=== PATIENT | male | born 1980 | race Caucasian/White ===

== ENCOUNTER 2021-11-11 09:01 | Emergency (ER) | payer BC, MEDICAID, SELFPAY ==
[2021-11-11 09:02] VITALS: BP 135/87; PULSE 84; RESP 14; TEMP 36.3; O2SAT 98; BMI 29.7
--- NOTE | 2021-11-11 09:19 | RAD_ITS ---
STUDY: X-RAY CHEST REASON FOR EXAM: Male, 41 years old. Chest pain. Palpitations. TECHNIQUE: Single AP portable view of the chest. COMPARISON: None. FINDINGS: EKG electrodes are seen. The lungs are clear and expanded. Scattered calcified granulomas. There is no demonstrated pleural abnormality. Normal size heart. Normal mediastinum and elysia. Normal visualized pulmonary arteries. Normal visualized aortic arch and descending thoracic aorta. Normal visualized thoracic spine. Normal visualized ribs, clavicles, and shoulders. There is no demonstrated abnormality of the visualized soft tissue structures of the upper abdomen. RAD/Chest 1 View (Portable) IMPRESSION: No acute abnormality is seen. Electronically Signed: Steven Knight MD at 9:52 EST , Service support ,
--- NOTE | 2021-11-11 09:19 | EKG12_ITS ---
Test Reason : PALPITATIONS Blood Pressure : / mmHG Vent. Rate : 092 BPM Atrial Rate : 092 BPM P-R Int : 180 ms QRS Dur : 086 ms QT Int : 362 ms P-R-T Axes : 043 029 043 degrees QTc Int : 447 ms Normal sinus rhythm Normal ECG Confirmed by CLEVE ODONNELL, EDUARDO ([id number]), video tape editor EMILY DANIELS ([id number]) on 11/15/2021 10:18:41 AM Referred By: MARIOLA Confirmed By:EDUARDO POON MD
--- NOTE | 2021-11-11 09:20 | ED.VIS.CHEST ---
HPI History of Present Illness Chief Complaint: Palpitations Detail of Chief Complaint: Racing heart and chest pain Informant: patient Narrative Narrative: Patient presents to the emergency department with 2-day history of intermittent racing heart. He has checked his pulse and has been up to 120 at times. Patient states that he had symptoms earlier in the week and 4 days ago was seen at [facility] where he had an EKG that was unremarkable but states that his symptoms had resolved at that point after waiting 4 hours in the emergency department there. Patient today describes a burning in the center of his chest. Patient denies recent travel or surgery. No history of PE or DVT. No heart history. Patient has had his COVID-vaccine and did have COVID 1 year ago. He denies cough. Prior Similar Symptoms: Yes [facility] Medical History (Updated 11/11/21 @ 12:[address] Javed Uriostegui, ) Anxiety GERD (gastroesophageal reflux disease) Hyperlipidemia Home Medications atorvastatin 10 mg PO DAILY 11/11/21 [History Last Taken Unknown] oxybutynin chloride 10 mg PO DAILY 11/11/21 [History Last Taken Unknown] Allergy/AdvReac Type Severity Reaction Status Date / Time pseudoephedrine Allergy Other Verified 11/11/21 09:06 [From [facility]] Social History Smoking Status: Never smoker ROS ROS ED Review of Systems ROS Unobtainable: other Constitutional Constitutional ED: Reports lethargy; Denies chills, fever(s), sweats or weight loss Eyes Eyes: Denies blurry vision, change in vision or diplopia ENT ENT ED: Denies rhinorrhea or sore throat Cardiovascular Cardiovascular: Reports chest pain and racing heartbeat; Denies orthopnea Respiratory/Chest Respiratory/Chest: Reports dyspnea and dyspnea on exertion; Denies cough, orthopnea or sputum Gastrointestinal Gastrointestinal: Denies abdominal pain, diarrhea, nausea or vomiting Genitourinary Genitourinary ED: Denies dysuria, hematuria or urinary frequency Musculoskeletal Musculoskeletal: Denies arthralgias, back pain, myalgias or neck pain Integumentary Denies abscess, Abrasions or rash Neurologic Neurologic: Denies headache(s) or weakness Psychiatric Psychiatric: Denies anxiety, depression or suicidal thoughts Endocrine Endocrinology: Denies polydipsia, polyphagia or polyuria Hematologic/Lymphatic Hematologic/Lymphatic: Denies easy bleeding, easy bruising or lymphadenopathy Allergic/Immunologic Allergic/Immunologic ED: Denies mouth swelling, tongue swelling or urticaria EXAM Physical Exam Const Vital Signs: 11/11/21 09:02 11/11/21 10:03 Temperature 97.3 F L Temperature Source Temporal Pulse Rate 84 Respiratory Rate 14 Respiratory Effort Normal Non-Labored Respiratory Pattern Normal Blood Pressure 135/87 H Blood Pressure Mean 103 Pulse Ox 98 96 Oxygen Delivery Method Room Air Room Air Positive well nourished and well developed General Appearance ED: well developed and NAD HEENT Reports TM's clear and moist mucous membranes normocephalic and atraumatic; Negative for trauma or tenderness Tympanic Membrane ED: Yes TM's clear Eyes PERRL and EOMs intact bilaterally General Eye ED: Negative for pale conjunctiva or scleral icterus Neck no lymphadenopathy, supple and no JVD General: Negative for tenderness Chest Wall inspection of chest normal and palpation of chest normal Chest: Negative for tenderness Resp normal respiratory effort and clear to auscultation bilaterally Effort and Inspection: Negative for respiratory distress or pain with movement Auscultation: Negative for rhonchi, wheezes or diminished lung sounds Cardio regular rate, regular rhythm, S1 normal heart sound, S2 normal heart sound and no murmurs Peripheral Pulses: pulses 2+ throughout GI normal to inspection, nondistended, normoactive bowel sounds, soft to palpation, non-tender, non-distended and no masses Back/Spine no CVA tenderness and no thoracic nor lumbar tenderness Extremity normal to inspection General Extremety ED: Negative for edema General Extremity: Negative for edema Neuro oriented x3, CN's II-XII intact bilaterally, no sensory deficits noted and gait normal Sensorium / Orientation: awake, alert, oriented to person, oriented to place and oriented to time Motor Exam: strength 5/5 throughout and strength abnormal Psych mental status grossly normal Skin no rashes or lesions noted and no wounds Heart Score History: Slightly/Non-Suspicious ECG: Normal Age: </= 45 years Risk Factors: 1 or 2 Risk Factors Troponin: </= Normal Limit Score: 1 MDM MDM MDM Narrative Medical decision making narrative: IV line established on arrival. Patient placed on a cardiac rehabilitation specialist. He received a GI cocktail which really did not help his discomfort in his chest. Patient had a D-dimer that was normal and a troponin that was normal with ongoing pain since yesterday that is been continuous. His heart score is a 1. He does have family history of heart disease and history of cholesterol. Patient I feel is low risk for acute coronary syndrome. He has an appoint with his primary care physician tomorrow. I offered to place a Holter monitor on the patient for 2 days however he states that he is good to follow-up with his PCP tomorrow and the plan was to do it at that time. Patient would like to wait till tomorrow. Lab Data Attestation: I reviewed the patient's lab results. Labs: Laboratory Results - last 24 hr 11/11/21 11/11/21 11/11/21 09:20 09:20 09:20 WBC 10.6 RBC 5.28 Hgb 15.6 Hct 45.6 MCV 86.4 MCH 29.5 MCHC 34.2 RDW Std Deviation 41.1 RDW Coeff of Jose Roberto 13.1 Plt Count 228 MPV 10.3 Immature Gran % (Auto) 0.500 Neut % (Auto) 69.3 Lymph % (Auto) 21.8 [place] % (Auto) 6.4 Eos % (Auto) 1.5 Baso % (Auto) 0.5 Absolute Neuts (auto) 7.4 Absolute Lymphs (auto) 2.31 Nucleated RBC % 0 D-Dimer Quant (PE/DVT) 0.34 Sodium 139 Potassium 3.5 Chloride 107 Carbon Dioxide 25.0 Anion Gap 7 BUN 17 Creatinine 0.74 Estim Creat Clear Calc 132.90 Est GFR (MDRD) Af Amer 147 Est GFR (MDRD) Non-Af 122 BUN/Creatinine Ratio 22.9 H Glucose 127 H Calcium 9.3 Troponin I High Sens 11 TSH 0.80 Radiography Diagnostic Testing: Clinical Impression(s) from Imaging Studies Chest X-Ray 11/11/21 09:19 IMPRESSION: No acute abnormality is seen. Electronically Signed: Steven Knight MD at 9:52 EST , Service support , 1 view chest x-ray obtained interpreted by myself as no acute disease process EKG Initial EKG: Attestation: I personally reviewed and interpreted this EKG as follows: Comments: Sinus rhythm with a ventricular rate of 92 bpm with no acute ST segment changes Discharge Plan Triage Chief Complaint: Palpitations ED Provider: Javed Uriostegui Dx/Rx/DC Orders Clinical Impression: Chest pain, Tachycardia Instructions: ED Chest Pain, Uncertain Cause, ED Palpitations Prescriptions: No Action atorvastatin 10 mg tablet 10 mg PO DAILY RF: 0 oxybutynin chloride 10 mg tablet extended release 24hr 10 mg PO DAILY RF: 0 Primary Care Provider: Pramod Burton NP Referrals: Pramod Burton [employer], [employer] [Primary Care Provider] - 1 Day Disposition Disposition: Home, Self Care
[2021-11-11 09:31] LABS: Absolute Lymphocyte Count 2.31 X10^3/uL (0.83-4.51); Absolute Neutrophil Count 7.4 X10^3/uL (2.0-7.7); Basophil# 0.05 X10^3/uL; Basophil% 0.5 % (0-1); Eosinophil# 0.16 X10^3/uL; Eosinophils% 1.5 % (0-5); Hematocrit 45.6 % (40-54); Hemoglobin 15.6 g/dL (13.0-16.5); Lymphocyte # 2.31 X10^3/ul (0.83-4.51); Lymphocyte % 21.8 % (19-41); Mean Corp Hgb Conc 34.2 g/dL (32-36); Mean Corpuscular Hgb 29.5 pg (27.0-32.0); Mean Corpuscular Volume 86.4 fL (80-94); Mean Platelet Vol. 10.3 fl (6.2-12.0); Monocyte# 0.68 X10^3/uL; Monocyte% 6.4 % (0-10); NRBC Flagged by Analyzer 0 % (0-5); Neutrophil # 7.35 X10^3/uL (2.7-7.7); Neutrophil % 69.3 % (47-70); Platelet Count 228 K/mm3 (150-450); RBC Distribution Width CV 13.1 % (11.6-14.6); RBC Distribution Width SD 41.1 fl (35.1-43.9); Red Blood Count 5.28 M/mm3 (4.6-6.2); White Blood Count 10.6 K/mm3 (4.4-11.0)
[2021-11-11] MEDS: 0.9% Normal Saline 1,000 ML 150 ML IV (09:37)
[2021-11-11] MEDS: Mag Hydrox/Al Hydrox/Simeth 30 ML UDC PO (09:39)
[2021-11-11 09:42] LABS: D-Dimer Quantitative (DVT/PE) 0.34 FEU/ug/m (0.27-0.49)
[2021-11-11 09:56] LABS: Anion Gap 7 (5-15); BUN 17 mg/dL (7-18); BUN/Creat Ratio 22.9 RATIO (10-20); Calcium,Total 9.3 mg/dL (8.5-10.1); Chloride 107 mmol/L (98-107); Creatinine, Serum 0.74 mg/dL (0.70-1.30); EST Glomerular Filtration Rate 122 mL/min (>60); Est Glom Filt Rate - Afr Amer 147 mL/min (>60); Glucose 127 mg/dL (74-106); Potassium 3.5 mmol/L (3.5-5.1); Sodium Level 139 mmol/L (136-145); Troponin-I HS 11 pg/mL (3.0-78.0)
[2021-11-11 10:03] VITALS: O2SAT 96
[2021-11-11 13:06] VITALS: PULSE 88; RESP 16; O2SAT 98
== END 2021-11-11 13:09 | disposition home or self-care (01) ==
PROVIDERS: Emergency Provider Emergency Medicine; PCP Nurse Practitioner Primary Care; Visit Provider Emergency Medicine
DX: R07.9 Chest pain, unspecified (principal); R00.0 Tachycardia, unspecified; R00.2 Palpitations; E78.5 Hyperlipidemia, unspecified; Z86.16 Personal history of COVID-19; Z79.899 Other long term (current) drug therapy
CPT/HCPCS: 71045; 80048; 84443; 84484; 85025; 85379; 93005; 99284; J7030; A4216

== ENCOUNTER 2023-04-23 16:35 | Emergency (ER) | payer BC, MEDICAID, SELFPAY ==
[2023-04-23 16:35] VITALS: BP 123/83; PULSE 92; RESP 18; TEMP 36.1; O2SAT 100; BMI 29.1
--- NOTE | 2023-04-23 17:06 | EDS_ITS ---
HPI History of Present Illness Chief Complaint: Rash Informant: patient Onset/Context/Timing Onset: Days (6 days) Context: Gradual Onset Narrative Narrative: Patient presents with poison barbra to the left side of his body. He states he got poison barbra last Monday when he was golfing. Has been using topical ointment. Today he noted swelling in his left forearm with some puslike drainage. He was concerned for infection and presents to the ER. He did take Benadryl prior to arrival. Wounds were recently cleansed and cortisone cream was placed over the forearm. [facility] Medical History Anxiety GERD (gastroesophageal reflux disease) Hyperlipidemia Home Medications atorvastatin 10 mg tablet 10 mg PO DAILY 11/11/21 [History Last Taken Unknown] oxybutynin chloride 10 mg tablet,extended release 24 hr 10 mg PO DAILY 11/11/21 [History Last Taken Unknown] cephalexin 500 mg capsule 500 mg PO Q6 #40 CAPSULES 04/23/23 [Rx Last Taken Unknown] prednisone 20 mg tablet 40 mg PO DAILY #8 tabs 04/23/23 [Rx Last Taken Unknown] Allergy/AdvReac Type Severity Reaction Status Date / Time pseudoephedrine Allergy Other Verified 04/23/23 16:37 [From [facility]] Social History Smoking Status: Never smoker ROS ROS ED Constitutional Constitutional ED: Denies chills or fever(s) Eyes Eyes: Denies discharge from eye(s) ENT ENT ED: Denies discharge from eye(s) or sore throat Cardiovascular Cardiovascular: Denies chest pain Respiratory/Chest Respiratory/Chest: Denies cough or dyspnea Gastrointestinal Gastrointestinal: Denies abdominal pain, nausea or vomiting Musculoskeletal Musculoskeletal: Denies back pain Integumentary Reports rash; Denies Abrasions Neurologic Neurologic: Denies headache(s) or weakness Psychiatric Psychiatric: Denies anxiety or depression Allergic/Immunologic Allergic/Immunologic ED: Denies lip swelling or urticaria EXAM Physical Exam Const Vital Signs: 04/23/23 16:35 Temperature 97 F L Temperature Source Temporal Pulse Rate 92 Respiratory Rate 18 Blood Pressure 123/83 H Blood Pressure Mean 96 Pulse Ox 100 Oxygen Delivery Method Room Air Positive well nourished and well developed General Appearance ED: well developed HEENT Reports normocephalic and head/scalp atraumatic Eyes PERRL and EOMs intact bilaterally Neck supple Chest Wall palpation of chest normal Resp normal respiratory effort and clear to auscultation bilaterally Cardio regular rate and regular rhythm Neuro oriented x3 and no sensory deficits noted Sensorium / Orientation: alert Motor Exam: strength 5/5 throughout Psych mental status grossly normal Skin Skin Narrative: Erythematous rash noted to the lateral portion of the left upper arm, left volar forearm, left lateral proximal lower leg. Symptoms are consistent with contact dermatitis from poison barbra. No sign of obvious secondary infection at this time. MDM MDM MDM Narrative Medical decision making narrative: Patient be treated with oral prednisone given the multiple areas of his skin involved with his reaction. Given that he has noted drainage in the left forearm I will cover him with Keflex. It is possible that there is serosanguineous drainage but to help prevent any secondary infection he will be covered with antibiotic. Return instructions provided. Discharge Plan Triage Chief Complaint: Rash ED Provider: Nora Fragoso Dx/Rx/DC Orders Clinical Impression: Poison barbra dermatitis Instructions: ED Poison Barbra Rash Prescriptions: New prednisone 20 mg tablet 40 mg PO DAILY Qty: 8 0RF cephalexin 500 mg capsule 500 mg PO Q6 Qty: 40 0RF No Action atorvastatin 10 mg tablet 10 mg PO DAILY Label Comments: take 1 tablet by mouth once daily oxybutynin chloride 10 mg tablet extended release 24hr 10 mg PO DAILY Label Comments: take 1 tablet by mouth once daily Primary Care Provider: Pramod Burton NP Referrals: Pramod Burton NP, [employer] [Primary Care Provider] - 1 Week if not improving Disposition Disposition: Home, Self Care
[2023-04-23] MEDS: Cephalexin 250 MG Capsule 500 MG PO (17:30)
[2023-04-23] MEDS: predniSONE 20 MG Tablet 40 MG PO (17:30)
[2023-04-23 17:33] VITALS: RESP 16
== END 2023-04-23 17:34 | disposition home or self-care (01) ==
LOC: ED 17:21
PROVIDERS: Emergency Provider Emergency Medicine; PCP Nurse Practitioner Primary Care; Visit Provider Emergency Medicine
DX: L25.5 Unspecified contact dermatitis due to plants, except food (principal)
CPT/HCPCS: 99283

== ENCOUNTER → 2025-08-18 | Outpatient (CLI) | payer BC, SELFPAY ==
--- NOTE | 2025-08-18 13:24 | MRI_ITS ---
PROCEDURE: SPINE LUMBAR W/WO CONTRAST 08/18/2025 REASON FOR EXAM: HX OF DISCECTOMY, BILATERAL RADICULOPATHY TECHNIQUE: Procedure Code: [id number] Modality: MR Procedure: SPINE LUMBAR W/WO CONTRAST Multiplanar and multisequence images were obtained without and with intravenous gadolinium-based contrast administration. CONTRAST: Clariscan VOLUME: 18 mL COMPARISON: Lumbar spine, 07/29/2025 FINDINGS: Vertebrae: There are no compression fractures. There is normal bone marrow signal in the lumbar vertebral bodies. Alignment: There is maintenance of the normal lumbar lordosis. There is minimal levoscoliosis. Conus Medullaris: The conus medullaris terminates normally at the T12-L1 level. T12-L1 and L1-2: Unremarkable. L2-3: Unremarkable. L3-4: Unremarkable. L4-5: There is a broad-based central disc protrusion. There is a superimposed central disc extrusion which extends 5 mm inferiorly behind the L5 vertebral body. The extrusion measures 6 mm in AP dimension and 9 mm in transverse dimension. Status post left partial laminectomy and discectomy. There is enhancing scar at the left lateral aspect of the thecal sac and focally abutting the left L4 nerve root. There is bilateral facet arthropathy. L5-S1: There is a broad-based central disc protrusion. There is bilateral facet arthropathy. There is no central canal stenosis, lateral recess stenosis or foraminal narrowing. Sacrum: The visualized portion of the sacrum is unremarkable. The paravertebral soft tissues are unremarkable. MRI/Spine Lumbar W/WO Contrast IMPRESSION: 1. Status post left partial laminectomy and discectomy at L4-5. There is enha ncing scar abutting the left L4 nerve root. 2. There is a central disc extrusion at L4-5, as described. 3. There is degenerative disc disease at L5-S1, as described. 4. Other findings as noted. Reading Location: [place] [id number]
== END | disposition home or self-care (01) ==
LOC: MRI 13:11
PROVIDERS: PCP Nurse Practitioner Primary Care; Referring Provider Student in an Organized Health Care Education/Training Program; Visit Provider Student in an Organized Health Care Education/Training Program
DX: M54.16 Radiculopathy, lumbar region (principal); Z98.890 Other specified postprocedural states
CPT/HCPCS: 72158; A9575; A4216